=== PATIENT | female | born 1980 | race Asian ===

== ENCOUNTER 2023-05-19 11:50 | Inpatient (IN) ==
[2023-05-19 13:19] LABS: Pregnancy Test, Serum Negative (Negative)
[2023-05-19 13:20] LABS: Anion Gap 6 (3-11); Blood Urea Nitrogen 9 mg/dl (6-23); Calcium 8.8 mg/dl (8.6-10.3); Carbon Dioxide 25 mmol/L (21-32); Chloride 107 mmol/L (98-107); Est GFR (African American) 112.4 ml/min; Est GFR (Non-African American) 96.9 ml/min; Glucose 112 mg/dl (70-99(Fasting)); Potassium 3.5 mmol/L (3.5-5.1); Sodium 138 mmol/L (136-145)
--- NOTE | 2023-05-19 13:21 | Emergency Department Note ---
Impression & Plan Severe anemia, Bloody stools ED Provider Note Provider: Epifanio Carty MD DATE OF SERVICE: 05/19/2023 CHIEF COMPLAINT: Low blood counts, weakness HISTORY OF PRESENT ILLNESS: Patient is a 43-year-old female originally from [facility] here since October presenting referred from [facility] due to abnormal blood work and weakness. Patient states she had flu just over a month ago. States over the last several weeks she has been noting bright red blood in the toilet. Has had a little bit of bleeding on and off over the last for maybe 20 years. Has been evaluated in [facility] for this evidently with some imaging and they thought it might be hemorrhoid related but held off on surgery. Again at home for the past month almost continuous with red blood in the toilet. Denies significant abdominal pain. Denies any chest pain. Reports some dyspnea on exertion and feeling generally weak and fatigued. Denies significant heartburn. No history of fever or chills recently. No history of colon cancer or IBD reported. Denies significant diarrheal symptoms. Denies nosebleeds, bruising, or significant abnormal uterine bleeding. Denies use of blood thinners. Has not had a transfusion in the past. Does report she has a history of minor thalassemia. 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 NECK: Trachea midline. ENT: Mucous membranes pink and moist. LUNGS: Airway patent. No retractions or tachypnea HEART: Regular rate and rhythm. No chest wall tenderness ABDOMEN: Soft and non-tender, without guarding or rebound. SKIN: Acyanotic, warm, dry, without rashes EXTREMITIES: Without swelling, tenderness or deformity NEUROLOGICAL: No focal deficits. No aphasia. No facial droop or slurred speech. Normal strength and tone in the extremities. Sensation to gross touch normal. Ambulatory. EK bpm sinus tachycardia. No PVC or PAC. No acute ST segment elevation with a QTc of 448. Nonspecific inferior T wave changes. CONTINUOUS CARDIAC MONITORING: was ordered and showed a heart rate of 90s-100s bpm in an normal sinus rhythm to sinus tachycardia Patient's laboratory studies and imaging reviewed. Differential includes Infection, dehydration, metabolic abnormality, hypo/hyperglycemia, electrolyte disturbance, anemia, hypoxia, cardiac sources, intracerebral event, toxicologic, neurologic, as well as other pathologies. IMPRESSION/MEDICAL DECISION MAKING: Reviewed note and blood work from [facility]. Patient with a fairly normal metabolic panel chemistries however notable for significant anemia at 4.1 with a normal white blood cell count as well as a low platelet count. Has for the last several days been taking some vitamin and iron supplementation. Benign abdomen on exam. Reports of bright red blood but doubt this represents Crohn's or IBD given the lack of abdominal pain. No fevers reported. Dyspnea on exertion fatigue likely related to her severe anemia. Type and screen completed. Blood consent completed. Iron and ferritin panel ordered. Will give some Protonix but less likely be upper GI bleed given the normal BUN. Hemoglobin firmed at 3.8. Will order blood for transfusion as the patient agreeable. Will complete a CT abdomen to look for any intra-abdominal bleeding source or mass. Hospitalist team contacted. Platelet count normal here with normal white blood cell count. Normal INR. CT abd pelvis per radiology without acute finding. Will bring in for further workup and transfusion. Appears iron deficient. Denies diet restriction. Likely more chronic blood loss. DIAGNOSIS: Severe anemia, dyspnea on exertion DISPOSITION: Hospitalist will evaluate Patient was agreeable with this plan. Critical Care I have personally spent 33 minutes of critical care time in the direct management of this patient. This includes bedside care, interpretation of diagnostic studies, and testing, discussion with consultants, patient, and other required patient management activities. These 33 minutes is in excess of all separately billable procedures. Past Med/Surg History Social History Smoking Status: Never smoker Preferred Language: Turkmen Feels Safe at Home: Yes Allergies Allergies Allergy/AdvReac Type Severity Reaction Status Date / Time No Known Allergies Allergy Verified 03/30/23 09:37 Home Meds Previous Rx's Medication Instructions Recorded cetirizine 10 mg tablet 10 mg PO DAILY PRN allergy 03/30/23 symptoms #30 tabs copper 380 square mm intrauterine 1 device intrauterine ONCE #1 ea 03/30/23 device (ParaGard T 380A) Results & Data (ED) Vital Signs Vital Signs - 24 hr 05/19/23 12:10 05/19/23 13:03 05/19/23 13:04 Temperature 36.6 C Temperature Source Temporal Artery Scan Pulse Rate 108 H 97 H 96 H Respiratory Rate 16 23 Respiratory Effort / Characteristics Non-Labored Spontaneous Respiratory Depth Normal Respiratory Pattern Regular Blood Pressure 125/77 Blood Pressure Mean 93 Pulse Oximetry 100 Oxygen Delivery Method Room Air Sepsis Recent Fever Within 48 Hours No Sepsis New/Unexplained Change in Mental Status No Sepsis Action Taken by Nursing No Action Required 05/19/23 13:10 05/19/23 13:15 05/19/23 13:19 Temperature Temperature Source Pulse Rate 93 H 95 H Respiratory Rate 21 23 Respiratory Effort / Characteristics Respiratory Depth Respiratory Pattern Blood Pressure Blood Pressure Mean Pulse Oximetry Oxygen Delivery Method Room Air Sepsis Recent Fever Within 48 Hours Sepsis New/Unexplained Change in Mental Status Sepsis Action Taken by Nursing 05/19/23 13:19 05/19/23 13:20 05/19/23 13:30 Temperature Temperature Source Pulse Rate 94 H 96 H Respiratory Rate 19 22 Respiratory Effort / Characteristics Respiratory Depth Respiratory Pattern Blood Pressure 122/75 Blood Pressure Mean 91 Pulse Oximetry Oxygen Delivery Method Sepsis Recent Fever Within 48 Hours Sepsis New/Unexplained Change in Mental Status Sepsis Action Taken by Nursing 05/19/23 13:30 05/19/23 13:40 05/19/23 13:50 Temperature Temperature Source Pulse Rate 102 H 93 H Respiratory Rate 21 19 Respiratory Effort / Characteristics Respiratory Depth Respiratory Pattern Blood Pressure 122/76 Blood Pressure Mean 88 Pulse Oximetry Oxygen Delivery Method Sepsis Recent Fever Within 48 Hours Sepsis New/Unexplained Change in Mental Status Sepsis Action Taken by Nursing 05/19/23 14:08 05/19/23 14:10 05/19/23 14:20 Temperature Temperature Source Pulse Rate 95 H 91 H 104 H Respiratory Rate 16 19 20 Respiratory Effort / Characteristics Respiratory Depth Respiratory Pattern Blood Pressure Blood Pressure Mean Pulse Oximetry Oxygen Delivery Method Sepsis Recent Fever Within 48 Hours Sepsis New/Unexplained Change in Mental Status Sepsis Action Taken by Nursing 05/19/23 14:30 05/19/23 14:31 05/19/23 14:31 Temperature Temperature Source Pulse Rate 87 91 H Respiratory Rate 23 19 Respiratory Effort / Characteristics Respiratory Depth Respiratory Pattern Blood Pressure 116/68 Blood Pressure Mean 80 Pulse Oximetry Oxygen Delivery Method Sepsis Recent Fever Within 48 Hours Sepsis New/Unexplained Change in Mental Status Sepsis Action Taken by Nursing Laboratory Data 05/19/23 12:24 05/19/23 12:26 Lab Results 05/19/23 05/19/23 05/19/23 Range/Units 12:24 12:26 12:30 WBC 5.25 (4.8-10.8) K/ul RBC 2.75 L (4.20-5.40) M/uL Hgb 3.8 L* (12.0-16.0) g/dl Hct 14.8 L* (37.0-47.0) % MCV 53.8 L (80.0-100.0) fL MCH 13.8 L (25.0-34.0) pg MCHC 25.7 L (32.0-36.0) g/dL RDW Std Deviation 43.1 (36.4-46.3) fL RDW Coeff of Floresita 24.1 H (11.5-14.5) % Plt Count 349 (130-400) K/uL Absolute Nucleated RBC 0.02 (0.00-0.12) K/uL Nucleated RBC % (auto) 0.4 % PT 10.9 (9.0-12.0) Seconds INR 1.0 (0.9-1.1) APTT 21 (21-31) Seconds PTT Ratio 0.7 Sodium 138 (136-145) mmol/L Potassium 3.5 (3.5-5.1) mmol/L Chloride 107 (98-107) mmol/L Carbon Dioxide 25 (21-32) mmol/L Anion Gap 6 (3-11) BUN 9 (6-23) mg/dl Creatinine 0.75 (0.6-1.2) mg/dl Est Cr Clr Drug Dosing Not Reportable Est GFR ( Amer) 112.4 ml/min Est GFR (Non-Af Amer) 96.9 ml/min BUN/Creatinine Ratio 12.0 (10-20) Glucose 112 H (70-99(Fasting)) mg/dl Calcium 8.8 (8.6-10.3) mg/dl Iron 10 L (35-150) mcg/dl TIBC 512 H (250-450) mcg/dl Unsaturated IBC 502 H (155-355) mcg/dl Transferrin % Sat 2 L (15-50) % Ferritin 2.1 L (8-388) ng/ml Total Bilirubin 0.4 (0.2-1.0) mg/dl AST 14 (13-39) U/L ALT 9 (7-52) U/L Alkaline Phosphatase 51 (34-104) U/L Troponin I High Sens < 2.3 (0-14) pg/ml Total Protein 7.0 (6.0-8.3) gm/dl Albumin 4.1 (3.4-5.0) gm/dl Globulin 2.9 (2.5-4.0) gm/dl Albumin/Globulin Ratio 1.4 (0.9-2) HCG, Qual Negative (Negative) Blood Type O Positive Blood Type Recheck Antibody Screen NEGATIVE Crossmatch See Detail 05/19/23 Range/Units 13:16 WBC (4.8-10.8) K/ul RBC (4.20-5.40) M/uL Hgb (12.0-16.0) g/dl Hct (37.0-47.0) % MCV (80.0-100.0) fL MCH (25.0-34.0) pg MCHC (32.0-36.0) g/dL RDW Std Deviation (36.4-46.3) fL RDW Coeff of Floresita (11.5-14.5) % Plt Count (130-400) K/uL Absolute Nucleated RBC (0.00-0.12) K/uL Nucleated RBC % (auto) % PT (9.0-12.0) Seconds INR (0.9-1.1) APTT (21-31) Seconds PTT Ratio Sodium (136-145) mmol/L Potassium (3.5-5.1) mmol/L Chloride (98-107) mmol/L Carbon Dioxide (21-32) mmol/L Anion Gap (3-11) BUN (6-23) mg/dl Creatinine (0.6-1.2) mg/dl Est Cr Clr Drug Dosing Est GFR ( Amer) ml/min Est GFR (Non-Af Amer) ml/min BUN/Creatinine Ratio (10-20) Glucose (70-99(Fasting)) mg/dl Calcium (8.6-10.3) mg/dl Iron (35-150) mcg/dl TIBC (250-450) mcg/dl Unsaturated IBC (155-355) mcg/dl Transferrin % Sat (15-50) % Ferritin (8-388) ng/ml Total Bilirubin (0.2-1.0) mg/dl AST (13-39) U/L ALT (7-52) U/L Alkaline Phosphatase (34-104) U/L Troponin I High Sens (0-14) pg/ml Total Protein (6.0-8.3) gm/dl Albumin (3.4-5.0) gm/dl Globulin (2.5-4.0) gm/dl Albumin/Globulin Ratio (0.9-2) HCG, Qual (Negative) Blood Type Blood Type Recheck O Positive Antibody Screen Crossmatch Administered Medications Discontinued Medications Pantoprazole Sodium 40 mg/ (Syringe) 10 mls @ 5 mls/min IV NOW ONE Stop: 05/19/23 13:28 Last Admin: 05/19/23 14:14 Dose: 5 mls/min Documented By: JOLYNN Ioversol (Optiray 320 125ml) 112 ml IV ONCE ONE Stop: 05/19/23 14:03 Last Admin: 05/19/23 14:03 Dose: 112 ml Documented By: HILDA Imaging Data Radiologist's Impression: Abdomen/Pelvis CTA 05/19/23 13:26 CT ANGIOGRAPHY OF THE ABDOMEN AND PELVIS CLINICAL HISTORY: bloody stool, severe anemia COMPARISON STUDY: No previous studies for comparison. TECHNIQUE: Helical axial images of the abdomen and pelvis were obtained during arterial phase following intravenous injection of 112 cc of Optiray 320 IV. Sagittal and coronal reconstructions were viewed as well as maximal intensity projections on an independent 3-D workstation. Automated exposure control was utilized for the study. A dose lowering technique was utilized adhering to the principles of ALARA. FINDINGS: Groundglass opacities within the lung bases favor atelectasis. No pneumatosis, free air or portal venous gas is present. Arterial phase images of the liver, spleen, adrenal glands, kidneys and pancreas are unremarkable. There is no biliary or pancreatic ductal dilatation. There is no hydronephrosis. The caliber and wall thickness of small and large bowel are normal. Sensitivity for detection of mucosal lesions is diminished given CT technique but none are identified. The appendix is normal. The caliber of the abdominal aorta is normal. 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 The superior mesenteric artery is patent. The inferior mesenteric artery is patent. Renal arteries are patent. The bilateral common iliac, internal iliac, external iliac and common femoral arteries are patent. No stenosis, dissection or aneurysm is identified within the abdomen or pelvis. Intrauterine device is in place. IMPRESSION: 1. No acute process within the abdomen or pelvis on CTA. 2. Normal caliber abdominal aorta. 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 Patent SMA and SÁNCHEZ. 3. Normal appendix. No bowel obstruction. No bowel wall thickening. ACT 112: Negative or not required by law. Electronically signed by: Mike Ricks M.D. 05/19/2023 2:29 PM Discharge Plan Visit Data Chief Complaint: Abnormal Labs/Diagnostic Testing Stated Complaint: DOC REF,ABNORMAL LABS ED Provider: Epifanio Carty Discharge Problem: Severe anemia, Bloody stools Patient Disposition: Being Evaluated by Hospitalist Prescriptions Prescriptions: No Action ParaGard T 380A 380 square mm intrauterine device 1 device intrauterine ONCE Qty: 1 0RF cetirizine 10 mg tablet 10 mg PO DAILY PRN (Reason: allergy symptoms) Qty: 30 1RF Referrals Referrals: Unknown,Unknown [] -
[2023-05-19 13:23] LABS: Troponin I High Sensitivity < 2.3 pg/ml (0-14)
[2023-05-19 13:24] LABS: Alanine Aminotransferase 9 U/L (7-52); Albumin Level 4.1 gm/dl (3.4-5.0); Alkaline Phosphatase 51 U/L (34-104); Aspartate Aminotransferase 14 U/L (13-39); Bilirubin,Total 0.4 mg/dl (0.2-1.0); Iron 10 mcg/dl (35-150)
[2023-05-19 13:25] LABS: Albumin Globulin Ratio 1.4 (0.9-2); Globulin 2.9 gm/dl (2.5-4.0)
[2023-05-19 13:31] LABS: Partial Thromboplastin Ratio 0.7; Partial Thromboplastin Time 21 Seconds (21-31); Prothrombin Time 10.9 Seconds (9.0-12.0)
[2023-05-19] MEDS ORDERED: SODIUM CHLORIDE 0.9% 250 ML IV PRN (13:32)
[2023-05-19 13:36] LABS: Hematocrit (blood only) 14.8 % (37.0-47.0); Hemoglobin 3.8 g/dl (12.0-16.0); Mean Corpuscular Hemoglobin 13.8 pg (25.0-34.0); Mean Corpuscular Hgb Conc 25.7 g/dL (32.0-36.0); Mean Corpuscular Volume 53.8 fL (80.0-100.0); Nucleated RBC # (auto) 0.02 K/uL (0.00-0.12); Nucleated RBC % (auto) 0.4 %; Platelet Count 349 K/uL (130-400); RDW Coefficient of Variation 24.1 % (11.5-14.5); RDW Standard Deviation 43.1 fL (36.4-46.3); Red Blood Count 2.75 M/uL (4.20-5.40); White Blood Count 5.25 K/ul (4.8-10.8)
[2023-05-19 13:37] LABS: Ferritin 2.1 ng/ml (8-388)
[2023-05-19 13:53] LABS: Total Iron Binding Cap Calc 512 mcg/dl (250-450); Transferrin (FE) Percent Satur 2 % (15-50); Unsaturated Iron Binding Cap 502 mcg/dl (155-355)
[2023-05-19] MEDS: OPTIRAY 320 125ml IV ONE (14:03)
[2023-05-19] MEDS: PANTOprazole 40 MG in SYRINGE 0 ML IV ONE (14:14)
--- NOTE | 2023-05-19 14:30 | CT Scan Report ---
CT ANGIOGRAPHY OF THE ABDOMEN AND PELVIS CLINICAL HISTORY: bloody stool, severe anemia COMPARISON STUDY: No previous studies for comparison. TECHNIQUE: Helical axial images of the abdomen and pelvis were obtained during arterial phase followi ng intravenous injection of 112 cc of Optiray 320 IV. Sagittal and coronal reconstructions were viewe d as well as maximal intensity projections on an independent 3-D workstation. Automated exposure cont rol was utilized for the study. A dose lowering technique was utilized adhering to the principles of ALARA. FINDINGS: Groundglass opacities within the lung bases favor atelectasis. No pneumatosis, free air or portal venous gas is present. Arterial phase images of the liver, spleen, adrenal glands, kidneys and pancreas are unremarkable. There is no biliary or pancreatic ductal dilatation. There is no hydronep hrosis. The caliber and wall thickness of small and large bowel are normal. Sensitivity for detection of mucosal lesions is diminished given CT technique but none are identified. The appendix is normal. The caliber of the abdominal aorta is normal. There is moderate stenosis of the proximal celiac axis . 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 The superior mesenteric artery is patent. The inferior mesenteric artery is patent. Renal arteries are patent. The bilateral common iliac, internal iliac, external iliac and common femoral arteries are patent. No stenosis, dissectio n or aneurysm is identified within the abdomen or pelvis. Intrauterine device is in place. IMPRESSION: 1. No acute process within the abdomen or pelvis on CTA. 2. Normal caliber abdominal aorta. 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 Patent SMA and SÁNCHEZ. 3. Normal appendix. No bowel obstruction. No bowel wall thickening. ACT 112: Negative or not required by law. Electronically signed by: Mike Ricks M.D. 05/19/2023 2:29 PM
--- NOTE | 2023-05-19 14:47 | History & Physical Report ---
Date of Service May 19, 2023 Assessment & Plan (1) Severe anemia: Plan: Severe iron deficiency anemia, hematochezia No history of colorectal cancer. History of hemorrhoids. Pt reports she had a local exam in [place] however did not have colonoscopy With persistent and continuous hematochezia. No epigastric pain, NSAID use, aspirin use, and BUN is normal CTA without evidence of acute abnormality/bleeding. Patient is at risk for MA LS; has had no symptoms of this Patient with presenting hemoglobin of 3.8; however she is mentating normally with some exertional fatigue but with no hypotension and minimal tachycardia suggestive of chronic decline Transferrin saturation 2%, ferritin critically low at 2.1 consistent with iron deficiency anemia. Patient is microcytic from both iron deficiency and thalassemia 3 units ordered for transfusion, 2 units on hold. Given hemoglobin of 3.8 will transfuse 2 units then check H&H, continue 1 unit at a time thereafter until hemoglobin greater than 7.0. No history of CHF or volume overload. If 3+ units are required will add small dose of Lasix, 1 dose of calcium gluconate GI consulted Once hemoglobin stabilizes greater than 7, recommend completing an inpatient course of Venofer 200-300 mg daily infusions up to a total course of 1 g during this hospitalization High sensitive troponin is negative, no signs of endorgan ischemia Patient has only had bright red bleeding, has a normal BUN, and no melena or abdominal tenderness. She shows no signs of upper GI bleed, history and exam is consistent with lower. Has received PPI bolus we will hold on additional at this time Strict n.p.o., IV FM deferred while receiving multiple units of transfusionAfter hemoglobin stable if remains n.p.o. can add LR 100 cc/h at that time - B12/folate pending (2) Bloody stools: (3) Thalassemia: Plan: Resume folic acid once able to tolerate p.o. (4) Bleeding hemorrhoid: (5) Encounter for insertion of copper IUD: Plan: Patient with copper IUD. She has monthly menses lasting approximately 6 days. She reports her menses are not particularly heavy, do not have excessive bleeding, or issues with clots/prolonged bleeding. Suspect her anemia is predominantly due to lower GI bleeding, no indication to switch from ParaGuard at this time Plan DVT prophylaxis: SCDs Disposition: Telemetry for GI bleed with critically low hemoglobin CODE STATUS: Full code Diet: N.p.o. History of Present Illness Primary Care Provider: 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 Patient did have an evaluation in [place] for this and was diagnosed with hemorrhoids but did not require surgery at time of evaluation. Patient has continued with bright red blood in the toilet over the last month. She has recently had progressive dyspnea on exertion, weakness, global fatigue without focal weakness or sensory change. No personal or family history of colon cancer/IBD. She has a history of thalassemia and macrocytosis. Case was discussed in the ER, patient's transferrin saturation is 2%, ferritin 2.1% consistent with severe iron deficiency anemia. She has a microcytosis multifactorial from iron deficiency and thalassemia with a presenting hemoglobin of 3.8. Initially was reflexed to a manual platelet count from outpatient [facility] blood work, platelets are normal on admitting CBC. Patient seen at the bedside. She reports that she has had a long history of intermittent bright red bleeding with bowel movements in the toilet, however this has been more persistent and relatively constant over the last month. Approximately 2 to 3 weeks ago she began to get short of breath with exertion, lightheaded, and progressively weaker/with lower exercise tolerance. She has not had chest pain or syncope at any point. She eventually felt so tired that she saw [facility], was found to be anemic and was subsequently referred to the ER for further care. She has a exchange student fluent in Kyrgyz. She reports that she had a local exam which diagnosed hemorrhoids when she was in [facility]; however has not been sedated for any procedures and does not think she had a actual colonoscopy at any point. No history of colorectal cancer. She does have a copper IUD, has regular menses every 28 days which last about 6 days but are without heavy bleeding or clots. Denies other bleeding. No history of blood clots. She is not on antiplatelet agents or blood thinners. She did recently have the flu last month from which she has recovered, did use some intermittent NyQuil at that time. Otherwise has not used any ibuprofen or aspirin containing products. She has no epigastric pain, nausea, vomiting, or melena. Medical History: Reviewed Medications: Reviewed Surgical History: Reviewed Family history: Reviewed Allergies: Reviewed Social History: Reviewed Code Status:Full Allergies Allergy/AdvReac Type Severity Reaction Status Date / Time No Known Allergies Allergy Verified 05/19/23 15:02 Home Medications Medication Instructions Recorded Confirmed Type albuterol sulfate 90 mcg/actuation 1 puff inhalation DIRECTED PRN 05/19/23 05/19/23 History aerosol inhaler Cough copper 380 square mm intrauterine 1 device intrauterine CONTINOUS 05/19/23 05/19/23 History device (ParaGard T 380A) Past Med/Surg History Medical History (Updated 05/19/23 @ 15:21 by Dean Leyva MD) Encounter for insertion of copper IUD Bleeding hemorrhoid Thalassemia Bloody stools Social History Smoking Status: Never smoker Preferred Language: Kyrgyz Feels Safe at Home: Yes Physical Exam Physical Exam: General: A&Ox3. NAD. Cooperative. +pallor HEENT: Atraumatic, normocephalic. Pulm: CTAB A&P. -wheezes, -rales, -rhonchi. Symmetrical chest rise. No increased work of breathing. No respiratory distress. Cardiac: RRR, -mrg. Radial pulses intact and symmetrical. Abdominal: Nontender, nondistended, soft. BS present. Ext: warm, dry. Distal strength/sensation grossly intact. Results & Data Results & Data Vital Signs (Past 12 Hours) Vital Signs Temp Pulse Resp BP Pulse Ox O2 Del Method 05/19/23 14:31 116/68 05/19/23 14:31 91 H 19 05/19/23 14:30 87 23 05/19/23 14:20 104 H 20 05/19/23 14:10 91 H 19 05/19/23 14:08 95 H 16 05/19/23 13:50 93 H 19 05/19/23 13:40 102 H 21 05/19/23 13:30 122/76 05/19/23 13:30 96 H 22 05/19/23 13:20 94 H 19 05/19/23 13:19 122/75 05/19/23 13:19 95 H 23 05/19/23 13:15 Room Air 05/19/23 13:10 93 H 21 05/19/23 13:04 96 H 05/19/23 13:03 97 H 23 05/19/23 12:10 36.6 C 108 H 16 125/77 100 Room Air PG Care Time/CCT Total # of Minutes Spent Total Time Spent with Patient: Total time spent is greater than 50% in coordination of care (as documented) at patient's floor/unit and/or counseling patient: Coding Level of Care Code 58043 INT INP/OBS CARE 3/75MIN Diagnoses Severe anemia D64.9 Bloody stools K92.1 Thalassemia D56.9 Bleeding hemorrhoid K64.9 Encounter for insertion of copper IUD Z30.430
[2023-05-19] MEDS ORDERED: ALBUTEROL HFA 8 GM INHALER INH PRN (16:50)
[2023-05-19 21:09] LABS: Hematocrit (blood only) 23.2 % (37.0-47.0); Hemoglobin 7.1 g/dl (12.0-16.0)
[2023-05-20 01:27] LABS: Hemoglobin 6.9 g/dl (12.0-16.0)
[2023-05-20] MEDS ORDERED: STAT IV/IM STA (01:57)
[2023-05-20] MEDS: CALCIUM GLUCONATE 10% 1,000 MG in SODIUM CHLOR 0.9% MINI-B 50 ML IV ONE (04:16)
[2023-05-20] MEDS: FUROSEMIDE INJ 20 MG/2 ML VIAL IV ONE (04:31)
[2023-05-20] MEDS: LACTATED RINGER'S 1,000 ML IV SCH ×2 (06:17→08:46)
--- NOTE | 2023-05-20 06:19 | Electrocardiogram Report ---
Test Reason : Blood Pressure : / mmHG Vent. Rate : 106 BPM Atrial Rate : 106 BPM P-R Int : 142 ms QRS Dur : 084 ms QT Int : 338 ms P-R-T Axes : 074 075 -13 degrees QTc Int : 448 ms Sinus tachycardia Possible Left atrial enlargement Nonspecific T wave abnormality Abnormal ECG No previous ECGs available Confirmed by Rambo Joseph ([id number]) on 05/20/2023 6:18:49 AM Referred By: [facility] Confirmed By:Rambo Joseph
[2023-05-20 06:55] LABS: BUN Creatinine Ratio 11.4 (10-20); Calcium 9.1 mg/dl (8.6-10.3); Creatinine Clr Calc Pharmacy 75.2 ml/min; Est GFR (African American) 105.5 ml/min; Hematocrit (blood only) 28.3 % (37.0-47.0); Hemoglobin 9.1 g/dl (12.0-16.0); Mean Corpuscular Hemoglobin 21.2 pg (25.0-34.0); Mean Corpuscular Hgb Conc 32.2 g/dL (32.0-36.0); Mean Corpuscular Volume 65.8 fL (80.0-100.0); Nucleated RBC # (auto) 0.04 K/uL (0.00-0.12); Nucleated RBC % (auto) 0.6 %; Platelet Count 294 K/uL (130-400); Potassium 3.6 mmol/L (3.5-5.1); White Blood Count 7.19 K/ul (4.8-10.8)
[2023-05-20 07:22] LABS: Folate (Folic Acid),Ser orPlas > 22.30 ng/ml (>5.38)
[2023-05-20 07:23] LABS: Vitamin B12 285 pg/ml (180-914)
[2023-05-20 07:31] LABS: Anisocytosis Present; Basophils # (auto) 0.02 K/uL (0.00-0.20); Basophils % (auto) 0.3 %; Eosinophils # (auto) 0.04 K/uL (0.00-0.50); Eosinophils % (auto) 0.6 %; Hypochromasia Present; Immature Granulocytes # (auto) 0.03 K/uL (0.01-0.20); Immature Granulocytes % (auto) 0.4 %; Lymphocytes % (auto) 26.4 %; Microcytosis Present; Monocytes # (auto) 0.49 K/uL (0.11-0.59); Monocytes % (auto) 6.8 %; Neutrophils # (auto) 4.71 K/uL (1.40-6.50); Neutrophils % (auto) 65.5 %; Polychromasia 3+; Tear Drop Cells 1+
[2023-05-20] MEDS: IRON SUCROSE 200 MG in 0.9 % SODIUM CHLORIDE 100 ML IV SCH (08:46)
--- NOTE | 2023-05-20 10:50 | Gastrointestinal Consultation ---
Date of Consultation May 20, 2023 Assessment & Plan (1) Bloody stools: (2) Severe anemia: Plan Patient is a 43 y.o. female with a history of Thalassemia admitted with profound symptomatic anemia and rectal bleeding. -NPO. -EGD for further evaluation by Dr. Upton today. -Pending results of testing, will determine need/timing of colonoscopy. -Continue supportive care per primary team. Thank you for allowing us to participate in the care of this patient. If you have any questions or concerns, please do not hesitate to contact us. Supervising Physician Co-Signing Physician Notes Agree with OLIVE Gil as above Abd: Soft, NT, ND, +BS Continue current therapy and supportive care Proceed with EGD now History of Present Illness Reason for Consultation: Symptomatic anemia Requesting Physician: Dr. Garcia Attending Physician: Bayron Frost MD History of Present Illness Patient is a 43 y.o. female with a history of thalassemia and hemorrhoids admitted with symptomatic anemia. She states she has an approximate 20 year history of intermittent rectal bleeding but states she has been having persistent bright red rectal bleeding over the past month. The bleeding is noted with bowel movements and dripping in the bowl during urination as well. No abdominal pain, diarrhea, constipation, bloating, nausea, vomiting or unintentional weight loss. She has never undergone any prior endoscopic work up for bleeding but did reportedly have treatment for hemorrhoids in [facility]. On arrival, she was profoundly anemic with a H&H of 3.8/14.8. After receiving 3 units of PRBCs, she is up to 9.1/28.3 this morning. She remains NPO. No family history of IBD or GI malignancy. Allergies Allergy/AdvReac Type Severity Reaction Status Date / Time No Known Allergies Allergy Verified 05/19/23 15:02 Home Medications Medication Instructions Recorded Confirmed Type albuterol sulfate 90 mcg/actuation 1 puff inhalation DIRECTED PRN 05/19/23 05/19/23 History aerosol inhaler Cough copper 380 square mm intrauterine 1 device intrauterine CONTINOUS 05/19/23 05/19/23 History device (ParaGard T 380A) Patient History Medical History Encounter for insertion of copper IUD Bleeding hemorrhoid Thalassemia Bloody stools Social History Smoking Status: Never smoker Hx Alcohol Use: Yes Hx Substance Use: No Preferred Language: Cape Verdean Communication Ability: Effective Collet Maker Required: No Beliefs That Will Affect Care: None Current Living Situation: Boarding Home Feels Safe at Home: Yes Assistive Devices: Glasses Review of Systems Review of Systems: All systems reviewed & are unremarkable except as noted in HPI & below Physical Exam Constitutional: WD/WN, vitals as above Eyes: EOM intact bilaterally Neck: normal appearance Respiratory: normal respiratory effort, lungs clear to auscultation Cardiovascular: Rate/Rhythm: regular rate and regular rhythm Heart Sounds: no gallop and no murmur Gastrointestinal (Abdomen): normal bowel sounds, soft, nontender, no hepatosplenomegaly Inspection/Auscultation: abdomen not distended Musculoskeletal: Extremities: no cyanosis no lower extremity edema Skin: no rashes, warm and dry Neurologic: moves all extremities Psychiatric: A+Ox3, euthymic affect Results & Data Vital Signs (Past 12 Hours) Vital Signs Temp Pulse Pulse Resp BP BP Pulse Ox 05/20/23 09:07 71 05/20/23 07:24 36.8 C 73 16 116/69 98 05/20/23 04:20 36.8 C 72 15 114/72 99 05/20/23 03:45 36.9 C 73 14 100/73 97 05/20/23 02:45 36.8 C 76 16 115/71 98 05/20/23 02:15 37.0 C 75 17 113/71 98 05/20/23 02:00 36.8 C 72 15 118/72 98 05/20/23 01:45 37.0 C 74 17 116/68 98 05/19/23 23:05 36.9 C 83 14 120/67 99 05/19/23 22:50 79 O2 Del Method 05/20/23 09:07 05/20/23 07:24 Room Air 05/20/23 04:20 05/20/23 03:45 05/20/23 02:45 05/20/23 02:15 05/20/23 02:00 05/20/23 01:45 05/19/23 23:05 Room Air 05/19/23 22:50 Diagnostic Findings Abnormal lab results 05/19/23 05/19/23 05/19/23 Range/Units 12:24 12:26 20:38 RBC 2.75 L (4.20-5.40) M/uL Hgb 3.8 L* 7.1 L D (12.0-16.0) g/dl Hct 14.8 L* 23.2 L (37.0-47.0) % MCV 53.8 L (80.0-100.0) fL MCH 13.8 L (25.0-34.0) pg MCHC 25.7 L (32.0-36.0) g/dL RDW Coeff of [place] 24.1 H (11.5-14.5) % Glucose 112 H (70-99(Fasting)) mg/dl Iron 10 L (35-150) mcg/dl TIBC 512 H (250-450) mcg/dl Unsaturated IBC 502 H (155-355) mcg/dl Transferrin % Sat 2 L (15-50) % Ferritin 2.1 L (8-388) ng/ml Crossmatch See Detail 05/20/23 05/20/23 Range/Units 00:35 06:02 RBC (4.20-5.40) M/uL Hgb 6.9 L* 9.1 L (12.0-16.0) g/dl Hct 22.0 L 28.3 L (37.0-47.0) % MCV 65.8 L D (80.0-100.0) fL MCH 21.2 L (25.0-34.0) pg MCHC (32.0-36.0) g/dL RDW Coeff of [place] (11.5-14.5) % Glucose (70-99(Fasting)) mg/dl Iron (35-150) mcg/dl TIBC (250-450) mcg/dl Unsaturated IBC (155-355) mcg/dl Transferrin % Sat (15-50) % Ferritin (8-388) ng/ml Crossmatch PG Care Time/CCT Total # of Minutes Spent Total Time Spent with Patient: Total time spent is greater than 50% in coordination of care (as documented) at patient's floor/unit and/or counseling patient: Coding Level of Care Code 32467 INT INP/OBS CARE 3/75MIN Diagnoses Bloody stools K92.1 Severe anemia D64.9
--- NOTE | 2023-05-20 11:41 | Anesthesiology Consultation ---
Date of Service May 20, 2023 Assessment & Plan ASA ASA2 Proposed Anesthesia Anesthesia Type: MAC Risk / Benefits Reviewed With: PT / POA / Parent / Guardian, Accepts Plan and Informed Consent Obtained History Surgery Operation Date: 05/20/23 17:00 Proposed Procedures p Esophagogastroduodenoscopy Dr Upton - Simon David Case, DO Height/Weight Height: 5 ft 3 in Weight: 60.3 kg Allergies Allergy/AdvReac Type Severity Reaction Status Date / Time No Known Allergies Allergy Verified 05/19/23 15:02 Medications Home Medications Medication Instructions Recorded Confirmed Last Taken albuterol sulfate 90 mcg/actuation 1 puff inhalation DIRECTED PRN 05/19/23 05/19/23 Unknown aerosol inhaler Cough copper 380 square mm intrauterine 1 device intrauterine CONTINOUS 05/19/23 05/19/23 Unknown device (ParaGard T 380A) Active Medications Generic Name Dose Route Start Last Admin Trade Name Freq PRN Reason Stop Dose Admin Lactated Ringer's 1,000 mls @ 100 mls/hr 05/20/23 08:05 05/20/23 08:46 Lr IV 06/19/23 08:02 100 mls/hr .Q10H SHARMIN Administration Iron Sucrose 200 mg/ Sodium 110 mls @ 220 mls/hr 05/20/23 09:00 05/20/23 09:19 Chloride IV 05/24/23 08:59 Infused DAILY SHARMIN Infusion NPO Date Last Intake of Fluids: 05/19/23 Time Last Intake of Fluids: 10:30 Date Last Intake of Solids: 05/19/23 Time Last Intake of Solids: 10:30 Past Medical History Medical History Encounter for insertion of copper IUD Bleeding hemorrhoid Thalassemia Bloody stools Exercise / Class Metabolic Activity II 4-5 Yardwork/Stairs/Walk up hill Past Anesthesia History No Hx of Anesthesia Complications and No Family Hx of Anesthesia Complications History of PONV No Hx of PONV and No Hx of Motion Sickness Social History Smoking Status: Never smoker Hx Alcohol Use: Yes alcohol intake frequency: holidays/special occasions only Hx Substance Use: No Physical Exam Vital Signs Last Vital Signs Temp 37.2 C 05/20/23 11:07 Pulse 72 05/20/23 11:07 Resp 16 05/20/23 11:07 BP 114/75 05/20/23 11:07 Pulse Ox 99 05/20/23 11:07 O2 Del Method Room Air 05/20/23 11:07 Constitutional no acute distress ENMT Mouth: no dentition abnormality Thyromental Distance: > or= 3.5 Finger Breadths Mallampati Class: III Neck normal visual inspection Respiratory normal respiratory effort; no respiratory distress Auscultation: lungs clear to auscultation bilaterally Cardiovascular Rate/Rhythm: regular rate and regular rhythm Heart Sounds: no murmur Musculoskeletal Spine: normal cervical ROM Psychiatric Orientation: alert and oriented x 3 Testing Laboratory Results 05/20/23 06:02 05/20/23 06:02 PT 10.9 Seconds (9.0-12.0) 05/19/23 12:24 INR 1.0 (0.9-1.1) 05/19/23 12: APTT 21 Seconds (21-31) 05/19/23 12:24 Blood Type O Positive 05/19/23 12: Antibody Screen NEGATIVE 05/19/23 12:24 Day of Procedure Evaluation. Date of Surgery May 20, 2023 Review / Plan Pt was admitted with severe hamatochezia and anemia hgb<4 and was transfused with PRBCs. She is for EGD today. Height/Weight Height: 5 ft 3 in Weight: 60.3 kg Vital Signs Last Vital Signs Temp 37.2 C 05/20/23 11:07 Pulse 72 05/20/23 11:07 Resp 16 05/20/23 11:07 BP 114/75 05/20/23 11:07 Pulse Ox 99 05/20/23 11:07 O2 Del Method Room Air 05/20/23 11:07 Allergies Allergy/AdvReac Type Severity Reaction Status Date / Time No Known Allergies Allergy Verified 05/19/23 15:02 Medications Home Medications Medication Instructions Recorded Confirmed Last Taken albuterol sulfate 90 mcg/actuation 1 puff inhalation DIRECTED PRN 05/19/23 05/19/23 Unknown aerosol inhaler Cough copper 380 square mm intrauterine 1 device intrauterine CONTINOUS 05/19/23 05/19/23 Unknown device (ParaGard T 380A) Active Medications Generic Name Dose Route Start Last Admin Trade Name Freq PRN Reason Stop Dose Admin Lactated Ringer's 1,000 mls @ 100 mls/hr 05/20/23 08:05 05/20/23 08:46 Lr IV 06/19/23 08:02 100 mls/hr .Q10H SHARMIN Administration Iron Sucrose 200 mg/ Sodium 110 mls @ 220 mls/hr 05/20/23 09:00 05/20/23 09:19 Chloride IV 05/24/23 08:59 Infused DAILY SHARMIN Infusion Past Anesthesia History No Hx of Anesthesia Complications and No Family Hx of Anesthesia Complications History of PONV No Hx of PONV and No Hx of Motion Sickness NPO Date Last Intake of Fluids: 05/19/23 Time Last Intake of Fluids: 10:30 Date Last Intake of Solids: 05/19/23 Time Last Intake of Solids: 10:30 Home Medications Home Medications Medication Instructions Recorded Confirmed Last Taken albuterol sulfate 90 mcg/actuation 1 puff inhalation DIRECTED PRN 05/19/23 05/19/23 Unknown aerosol inhaler Cough copper 380 square mm intrauterine 1 device intrauterine CONTINOUS 05/19/23 05/19/23 Unknown device (ParaGard T 380A) Active Medications Generic Name Dose Route Start Last Admin Trade Name Freq PRN Reason Stop Dose Admin Lactated Ringer's 1,000 mls @ 100 mls/hr 05/20/23 08:05 05/20/23 08:46 Lr IV 06/19/23 08:02 100 mls/hr .Q10H SHARMIN Administration Iron Sucrose 200 mg/ Sodium 110 mls @ 220 mls/hr 05/20/23 09:00 05/20/23 09:19 Chloride IV 05/24/23 08:59 Infused DAILY SHARMIN Infusion Exercise / Class Metabolic Activity Metabolic Activity: II 4-5 Yardwork/Stairs/Walk up hill Physical Exam Constitutional: no acute distress Mouth: no dentition abnormality Thyromental Distance: > or= 3.5 Finger Breadths Mallampati Class: III Neck: + visual inspection normal Respiratory: + respiratory effort normal and + clear to auscultation bilaterally; no respiratory distress Cardiovascular: + regular rate and + regular rhythm; no murmur Musculoskeletal: no limited cervical ROM Psychiatric: + alert and + oriented x 3 ASA ASA2 Proposed Anesthesia Proposed Anesthesia: MAC Risk / Benefits Reviewed With: PT / POA / Parent / Guardian, Accepts Plan and Informed Consent Obtained
--- NOTE | 2023-05-20 12:12 | GI REPORT ---
Patient Name: Mark Ayala Procedure Date: 05/20/2023 11:20 AM Date of : 1980 Admit Type: Inpatient Age: 43 Gender: Female Attending MD: Simon Upton DO, Procedure: Upper GI endoscopy Providers: Simon Upton DO [facility] Indications: Acute post hemorrhagic anemia Medicines: Monitored Anesthesia Care Complications: No immediate complications. Estimated Blood Loss: Estimated blood loss: none. Procedure: Pre-Anesthesia Assessment: - Prior to the procedure, a History and Physical was performed, and patient medications and allergies were reviewed. The patient's tolerance of previous anesthesia was also reviewed. The risks and benefits of the procedure and the sedation options and risks were discussed with the patient. All questions were answered, and informed consent was obtained. Prior Anticoagulants: The patient has taken no anticoagulant or antiplatelet agents. ASA Grade Assessment: II - A patient with mild systemic disease. After reviewing the risks and benefits, the patient was deemed in satisfactory condition to undergo the procedure. After obtaining informed consent, the endoscope was passed under direct vision. Throughout the procedure, the patient's blood pressure, pulse, and oxygen saturations were monitored continuously. The Scope was introduced through the mouth, and advanced to the second part of duodenum. The upper GI endoscopy was accomplished without difficulty. The patient tolerated the procedure well. Findings: The esophagus was normal. Localized mild inflammation characterized by erythema was found in the gastric antrum. Biopsies were taken with a cold forceps for histology. The examined duodenum was normal. Impression: - Normal esophagus. - Gastritis. Biopsied. - Normal examined duodenum. Recommendation: - [facility]. - Clear liquid diet today. - Perform a colonoscopy tomorrow. - Await pathology results. Simon Upton DO 05/20/2023 12:11:46 PM This report has been signed electronically. Note Initiated On: 05/20/2023 11:20 AM Number of Addenda: 0 I attest to the content of the Intraoperative Record and orders documented therein, exceptions below {[id number]}
[2023-05-20] MEDS: LIDOCAINE 2% 2 ML VIAL/AMP(20MG/ML) INFIL ONE (13:45)
[2023-05-20] MEDS: PROPOFOL IV EMULSION 10 MG/ML 20 ML VIAL IV ONE (13:45)
--- NOTE | 2023-05-20 14:21 | Hospitalist Progress Note ---
Date of Service May 20, 2023 Assessment & Plan (1) Severe anemia: Plan: Hgb 3.8 on admission; however mentating normally with some exertional fatigue but with no hypotension and minimal tachycardia suggestive of chronic decline History of hemorrhoids, and persistent/continuous hematochezia -- Patient reports she had a local exam in [facility], however did not have a colonoscopy at that time. CTA without evidence of acute abnormality/bleeding High sensitive troponin is negative, no signs of end organ ischemia Transferrin saturation 2%, ferritin critically low at 2.1 consistent with iron deficiency anemia -- Patient is microcytic from both iron deficiency and thalassemia -- Vitamin B12 and folate both within normal limits 3 units of blood transfused -- Hgb holding stable at 9.1 Venofer 200 mg daily while inpatient, for total course of 1 g during this hospitalization Protonix 40 mg p.o. daily GI consulted -- EGD on 05/20/23: Normal esophagus. Gastritisbiopsied. Normal examined duodenum. -- Recommendations: Clear liquid diet today. Colonoscopy scheduled for 05/11/2023 (2) Bloody stools: Plan: See above (3) Bleeding hemorrhoid: Plan: See above (4) Thalassemia: Plan: Folic acid 1 mg p.o. QAM Plan DVT prophylaxis: SCDs CODE STATUS: Full code Diet: Clear liquids. N.p.o. after midnight due to scheduled colonoscopy on 05/21/2023 Admission and Anticipated Discharge Date Admission Date: May 19, 2023 Subjective Patient seen and evaluated at bedside. She reports she feels significantly better since receiving the blood transfusions. She denies any melena or bright red blood per rectum, however she has not had a bowel movement since admission. She denies lightheadedness, fatigue, weakness, shortness of breath, chest pain. She denies any abdominal pain or discomfort. I personally discussed her EGD results with her from earlier this afternoon. Discussed the plan for colonoscopy tomorrow with GI. Physical Exam Physical Exam: General: No acute distress, nondiaphoretic, well-developed, well-nourished. Skin: The skin was without pallor, rashes, erythema, edema, or bruising. Cardiac: Regular rate and rhythm without murmurs gallops or rubs. Pulm: Clear to auscultation bilaterally without wheezes, rales or rhonchi. No retractions or accessory muscle use. Abdominal: Positive bowel sounds x 4. Soft, nontender, without masses or organomegaly. No guarding or rebound tenderness. Neuro: A&O x3. No focal neurological deficits. Results & Data Results & Data Vital Signs (Past 12 Hours) Vital Signs Temp Pulse Pulse Resp BP BP Pulse Ox 05/20/23 12:38 72 16 109/67 99 05/20/23 12:23 75 16 105/65 98 05/20/23 12:07 74 16 106/60 97 05/20/23 11:07 37.2 C 72 16 114/75 99 05/20/23 09:07 71 05/20/23 07:24 36.8 C 73 16 116/69 98 05/20/23 04:20 36.8 C 72 15 114/72 99 05/20/23 03:45 36.9 C 73 14 100/73 97 05/20/23 02:45 36.8 C 76 16 115/71 98 05/20/23 02:15 37.0 C 75 17 113/71 98 O2 Del Method 05/20/23 12:38 Room Air 05/20/23 12:23 Room Air 05/20/23 12:07 Room Air 05/20/23 11:07 Room Air 05/20/23 09:07 05/20/23 07:24 Room Air 05/20/23 04:20 05/20/23 03:45 05/20/23 02:45 05/20/23 02:15 Laboratory Results Reviewed CBC Reviewed chemistries Reviewed EGD Diagnostic Findings EGD 05/20/2023: Impression: Normal esophagus. Gastritisbiopsied. Normal examined duodenum. PG Care Time/CCT Total # of Minutes Spent Total Time Spent with Patient: Total time spent is greater than 50% in coordination of care (as documented) at patient's floor/unit and/or counseling patient: Coding Level of Care Code 13190 SUB INP/OBS CARE 350MIN Diagnoses Severe anemia D64.9 Bloody stools K92.1 Bleeding hemorrhoid K64.9 Thalassemia D56.9
--- NOTE | 2023-05-20 15:12 | Anesthesiology Progress Note ---
Date of Service May 20, 2023 Anesthesia Post Procedure Vital Signs Vital Signs: Temp Pulse Pulse Resp BP BP Pulse Ox 05/20/23 12:38 72 16 109/67 99 05/20/23 12:23 75 16 105/65 98 05/20/23 12:07 74 16 106/60 97 05/20/23 11:07 37.2 C 72 16 114/75 99 05/20/23 09:07 71 05/20/23 07:24 36.8 C 73 16 116/69 98 05/20/23 04:20 36.8 C 72 15 114/72 99 05/20/23 03:45 36.9 C 73 14 100/73 97 05/20/23 02:45 36.8 C 76 16 115/71 98 05/20/23 02:15 37.0 C 75 17 113/71 98 05/20/23 02:00 36.8 C 72 15 118/72 98 05/20/23 01:45 37.0 C 74 17 116/68 98 05/19/23 23:05 36.9 C 83 14 120/67 99 05/19/23 22:50 79 05/19/23 20:04 36.9 C 81 18 110/64 99 05/19/23 19:54 05/19/23 19:29 36.9 C 83 17 117/69 100 05/19/23 19:06 37.0 C 79 18 126/68 100 05/19/23 18:36 36.9 C 79 16 137/76 100 05/19/23 18:21 37.0 C 79 17 131/73 100 05/19/23 17:59 37.0 C 81 18 128/71 100 05/19/23 17:26 85 05/19/23 17:13 05/19/23 16:45 36.8 C 83 16 128/71 100 05/19/23 15:45 92 H 18 117/83 100 05/19/23 15:31 36.9 C 97 H 20 127/78 100 05/19/23 15:15 99 H 20 119/92 100 O2 Del Method 05/20/23 12:38 Room Air 05/20/23 12:23 Room Air 05/20/23 12:07 Room Air 05/20/23 11:07 Room Air 05/20/23 09:07 05/20/23 07:24 Room Air 05/20/23 04:20 05/20/23 03:45 05/20/23 02:45 05/20/23 02:15 05/20/23 02:00 05/20/23 01:45 05/19/23 23:05 Room Air 05/19/23 22:50 05/19/23 20:04 05/19/23 19:54 Room Air 05/19/23 19:29 Room Air 05/19/23 19:06 05/19/23 18:36 05/19/23 18:21 05/19/23 17:59 05/19/23 17:26 05/19/23 17:13 Room Air 05/19/23 16:45 05/19/23 15:45 05/19/23 15:31 05/19/23 15:15 Transfer of Care Handoff Completed per policy Notes Mental Status: alert / awake / arousable and participated in evaluation Nausea / Vomiting: adequately controlled Pain: adequately controlled Airway Patency, RR, SpO2: stable & adequate BP & HR: stable & adequate Hydration State: stable & adequate Anesthetic Complications: no major complications apparent and Pt Satisfied with anesthetic care
[2023-05-20] MEDS: FOLIC ACID 1 MG TAB PO SCH (15:36)
[2023-05-20] MEDS: PANTOprazole 40 MG TAB PO SCH (15:36)
[2023-05-20] MEDS: LAVAGE SOLUTION 4000ML PO SCH (18:17)
[2023-05-21 06:21] LABS: BUN Creatinine Ratio 9.1 (10-20); Calcium 8.1 mg/dl (8.6-10.3); Est GFR (African American) 124.5 ml/min; Est GFR (Non-African American) 107.4 ml/min; Potassium 3.5 mmol/L (3.5-5.1)
[2023-05-21 06:45] LABS: Anisocytosis Present; Basophils # (auto) 0.01 K/uL (0.00-0.20); Basophils % (auto) 0.2 %; Eosinophils # (auto) 0.04 K/uL (0.00-0.50); Eosinophils % (auto) 0.8 %; Hematocrit (blood only) 25.9 % (37.0-47.0); Hypochromasia Present; Immature Granulocytes # (auto) 0.02 K/uL (0.01-0.20); Immature Granulocytes % (auto) 0.4 %; Lymphocytes # (auto) 1.75 K/uL (1.20-3.40); Lymphocytes % (auto) 35.1 %; Mean Corpuscular Hemoglobin 20.9 pg (25.0-34.0); Mean Corpuscular Hgb Conc 30.9 g/dL (32.0-36.0); Mean Corpuscular Volume 67.8 fL (80.0-100.0); Microcytosis Present; Monocytes # (auto) 0.44 K/uL (0.11-0.59); Monocytes % (auto) 8.8 %; Neutrophils # (auto) 2.73 K/uL (1.40-6.50); Neutrophils % (auto) 54.7 %; Nucleated RBC # (auto) 0.05 K/uL (0.00-0.12); Ovalocytes 1+; Platelet Count 248 K/uL (130-400); Polychromasia 1+; Red Blood Count 3.82 M/uL (4.20-5.40); Schistocytes 1+; White Blood Count 4.99 K/ul (4.8-10.8)
--- NOTE | 2023-05-21 07:44 | Anesthesiology Consultation ---
Date of Service May 21, 2023 Assessment & Plan Chart Review Chart Review: order entry clerk initiated History Surgery Operation Date: 05/20/23 17:00 Proposed Procedures p Esophagogastroduodenoscopy Dr Won David Case, DO Operation Date: 05/21/23 16:30 Proposed Procedures p Colonoscopy Dr. Won David Case, DO Height/Weight Height: 5 ft 3 in Weight: 61 kg Allergies Allergy/AdvReac Type Severity Reaction Status Date / Time No Known Allergies Allergy Verified 05/19/23 15:02 Medications Home Medications Medication Instructions Recorded Confirmed Last Taken albuterol sulfate 90 mcg/actuation 1 puff inhalation DIRECTED PRN 05/19/23 05/19/23 Unknown aerosol inhaler Cough copper 380 square mm intrauterine 1 device intrauterine CONTINOUS 05/19/23 05/19/23 Unknown device (ParaGard T 380A) Active Medications Generic Name Dose Route Start Last Admin Trade Name Freq PRN Reason Stop Dose Admin Folic Acid 1 mg 05/20/23 14:30 05/20/23 15:36 Folic Acid 1 Mg Tab PO 06/19/23 14:29 1 mg QAM SHARMIN Administration Lactated Ringer's 1,000 mls @ 100 mls/hr 05/20/23 08:05 05/21/23 06:35 Lr IV 06/19/23 08:02 100 mls/hr .Q10H SHARMIN Administration Iron Sucrose 200 mg/ Sodium 110 mls @ 220 mls/hr 05/20/23 09:00 05/20/23 09:19 Chloride IV 05/24/23 08:59 Infused DAILY SHARMIN Infusion Pantoprazole Sodium 40 mg 05/20/23 14:45 05/20/23 15:36 Pantoprazole 40 Mg Tab PO 06/19/23 14:44 40 mg DAILY SHARMIN Administration NPO Date Last Intake of Fluids: 05/19/23 Time Last Intake of Fluids: 10:30 Date Last Intake of Solids: 05/19/23 Time Last Intake of Solids: 10:30 Past Medical History Medical History Encounter for insertion of copper IUD Bleeding hemorrhoid Thalassemia Bloody stools Social History Smoking Status: Never smoker Hx Alcohol Use: Yes alcohol intake frequency: holidays/special occasions only Hx Substance Use: No Physical Exam Vital Signs Last Vital Signs Temp 98.1 F 05/21/23 03:46 Pulse 72 05/21/23 03:46 Resp 16 05/21/23 03:46 BP 106/61 05/21/23 03:46 Pulse Ox 97 05/21/23 03:46 O2 Del Method Room Air 05/21/23 03:46 Testing Laboratory Results 05/21/23 05:37 05/21/23 05:37 PT 10.9 Seconds (9.0-12.0) 05/19/23 12:24 INR 1.0 (0.9-1.1) 05/19/23 12:24 APTT 21 Seconds (21-31) 05/19/23 12:24 Blood Type O Positive 05/19/23 12:24 Antibody Screen NEGATIVE 05/19/23 12:24 Electrocardiogram Date: 05/19/23 Findings: + NSST changes and + ST @ (106 bpm)
--- NOTE | 2023-05-21 09:34 | History & Physical Bridge Note ---
Date of Service May 21, 2023 History & Physical Bridge Note I have examined the patient, reviewed the History & Physical and in the interval since the performance of the History & Physical I have noted the following changes of clinical significance: Hgb dropped to 8 from 9 yesterday but without any overt GIB sx. She completed bowel preparation and is passing clear liquid bowel movements. PE:A&Ox3. Lungs CTA bilaterally. RRR. no M/R/G. Abdomen soft, non-tender. Hyperactive bowel sounds. Extremities normal to inspection. A/P: Patient is a 43 y.o. female admitted with symptomatic, profound SHANITA with rectal bleeding. S/P EGD yesterday without an obvious source of bleeding. -NPO. -Proceed with colonoscopy by Dr. Upton today. -Further recommendations pending results of testing. Supervising Physician Co-Signing Physician Notes Agree with OLIVE Gil as above Abd: Soft, NT, ND, +BS Continue current therapy and supportive care Proceed with colonoscopy
--- NOTE | 2023-05-21 11:00 | GI REPORT ---
Patient Name: Mark Ayala Procedure Date: 05/21/2023 10:17 AM Date of : 1980 Admit Type: Inpatient Age: 43 Gender: Female Attending MD: Simon Upton DO, Procedure: Colonoscopy Providers: Simon Upton DO Referring MD: [facility] Indications: High risk colon cancer surveillance: Personal history of colonic polyps Medicines: Monitored Anesthesia Care Complications: No immediate complications. Estimated Blood Loss: Estimated blood loss: none. Procedure: Pre-Anesthesia Assessment: - Prior to the procedure, a History and Physical was performed, and patient medications and allergies were reviewed. The patient's tolerance of previous anesthesia was also reviewed. The risks and benefits of the procedure and the sedation options and risks were discussed with the patient. All questions were answered, and informed consent was obtained. Prior Anticoagulants: The patient has taken no anticoagulant or antiplatelet agents. ASA Grade Assessment: II - A patient with mild systemic disease. After reviewing the risks and benefits, the patient was deemed in satisfactory condition to undergo the procedure. After I obtained informed consent, the scope was passed under direct vision. Throughout the procedure, the patient's blood pressure, pulse, and oxygen saturations were monitored continuously. The Colonoscope was introduced through the anus and advanced to the terminal ileum. The colonoscopy was performed without difficulty. The patient tolerated the procedure well. The quality of the bowel preparation was good. The terminal ileum, ileocecal valve, appendiceal orifice, and rectum were photographed. Findings: The perianal and digital rectal examinations were normal. Internal hemorrhoids were found during retroflexion. The hemorrhoids were medium-sized. Impression: - Internal hemorrhoids. - No specimens collected. Recommendation: - [facility] patient [facility] care. - Resume regular diet. - Continue present medications. - Recommend capsule endoscopy to be scheduled with [facility] in [place] - Return to primary care physician as previously scheduled. Simon Upton DO 05/21/2023 10:59:56 AM This report has been signed electronically. Note Initiated On: 05/21/2023 10:17 AM Number of Addenda: 0 I attest to the content of the Intraoperative Record and orders documented therein, exceptions below {[id number]}
--- NOTE | 2023-05-21 11:12 | Anesthesiology Progress Note ---
Date of Service May 21, 2023 Anesthesia Post Procedure Vital Signs Vital Signs: Temp Pulse Pulse Resp BP Pulse Ox O2 Del Method 05/21/23 11:04 71 18 100/56 L 98 Room Air 05/21/23 10:03 98.6 F 75 18 122/68 98 Room Air 05/21/23 07:56 98.4 F 70 17 108/65 97 Room Air 05/21/23 03:46 98.1 F 72 16 106/61 97 Room Air 05/20/23 23:44 97.5 F L 68 16 120/83 100 Room Air 05/20/23 22:09 73 05/20/23 21:00 Room Air 05/20/23 19:38 97.7 F 75 16 122/83 100 Room Air 05/20/23 17:11 84 05/20/23 15:31 98.1 F 81 19 116/71 100 Room Air 05/20/23 12:38 72 16 109/67 99 Room Air 05/20/23 12:23 75 16 105/65 98 Room Air 05/20/23 12:07 74 16 106/60 97 Room Air Transfer of Care Handoff Completed per policy Notes Mental Status: alert / awake / arousable and participated in evaluation Patient Amnestic to Procedure: Yes Nausea / Vomiting: adequately controlled Pain: adequately controlled Airway Patency, RR, SpO2: stable & adequate BP & HR: stable & adequate Hydration State: stable & adequate Anesthetic Complications: no major complications apparent and Pt Satisfied with anesthetic care
[2023-05-21] MEDS: PROPOFOL IV EMULSION 10 MG/ML 20 ML VIAL IV ONE (11:41)
[2023-05-21] MEDS: fentaNYL citrate PF 100 MCG/2 ML VIAL ONE (11:41)
[2023-05-21] MEDS: MIDAZOLAM HCL 1 MG/ML 2ML VIAL ONE (11:44)
--- NOTE | 2023-05-21 14:34 | Hospitalist Progress Note ---
Date of Service May 21, 2023 Assessment & Plan (1) Severe anemia: Plan: Hgb 3.8 on admission; however mentating normally with some exertional fatigue but with no hypotension and minimal tachycardia suggestive of chronic decline History of hemorrhoids, and persistent/continuous hematochezia -- Patient reports she had a local exam in [place], however did not have a colonoscopy at that time. CTA without evidence of acute abnormality/bleeding High sensitive troponin is negative, no signs of end organ ischemia Transferrin saturation 2%, ferritin critically low at 2.1 consistent with iron deficiency anemia -- Patient is microcytic from both iron deficiency and thalassemia -- Vitamin B12 and folate both within normal limits 3 units of blood transfused -- Hgb holding stable at 8.0 Venofer 200 mg daily while inpatient, for total course of 1 g during this hospitalization Protonix 40 mg p.o. daily GI consulted -- EGD on 05/20/23: Normal esophagus. Gastritisbiopsied. Normal examined duodenum. -- Colonoscopy on 05/21/2023: Medium sized internal hemorrhoids. No specimens collected. -- Recommendations: Capsule endoscopy with [facility] in [place]. Continue present medications. Resume regular diet. Will recheck labs in a.m., and if hemoglobin holding stable, patient can be discharged tomorrow, 05/22/2023 with plan for capsule endoscopy. (2) Bloody stools: Plan: See above (3) Bleeding hemorrhoid: Plan: See above (4) Thalassemia: Plan: Folic acid 1 mg p.o. QAM Plan DVT prophylaxis: SCDs CODE STATUS: Full code Diet: Clear liquids. N.p.o. after midnight due to scheduled colonoscopy on 05/21/2023 Admission and Anticipated Discharge Date Admission Date: May 19, 2023 Subjective Patient seen and evaluated at bedside. She has no complaints at this time. I personally discussed the results of her colonoscopy with her and answered her questions about proceeding forward. She denies lightheadedness, dizziness, shortness of breath, chest pain, abdominal pain, urinary symptoms. Discussed plan to review lab work in the morning, and if hemoglobin remains stable, can be discharged tomorrow with plan for capsule endoscopy in the outpatient setting. Physical Exam Physical Exam: General: No acute distress, nondiaphoretic, well-developed, well-nourished. Skin: The skin was without pallor, rashes, erythema, edema, or bruising. Cardiac: Regular rate and rhythm without murmurs gallops or rubs. Pulm: Clear to auscultation bilaterally without wheezes, rales or rhonchi. No retractions or accessory muscle use. Abdominal: Positive bowel sounds x 4. Soft, nontender, without masses or organomegaly. No guarding or rebound tenderness. Neuro: A&O x3. No focal neurological deficits. Results & Data Results & Data Vital Signs (Past 12 Hours) Vital Signs Temp Pulse Pulse Resp BP Pulse Ox O2 Del Method 05/21/23 11:59 36.4 C L 75 18 98/60 L 100 Room Air 05/21/23 11:26 68 18 105/67 99 Room Air 05/21/23 11:13 67 18 108/66 99 Room Air 05/21/23 11:04 71 18 100/56 L 98 Room Air 05/21/23 10:03 37 C 75 18 122/68 98 Room Air 05/21/23 08:00 68 05/21/23 07:56 36.9 C 70 17 108/65 97 Room Air 05/21/23 03:46 36.7 C 72 16 106/61 97 Room Air Laboratory Results Reviewed CBC Reviewed chemistry Reviewed colonoscopy results Diagnostic Findings Colonoscopy 05/21/2023: Findings: Perianal and digital rectal exams were normal. Internal hemorrhoidsmedium sized, no specimens collected. PG Care Time/CCT Total # of Minutes Spent Total Time Spent with Patient: Total time spent is greater than 50% in coordination of care (as documented) at patient's floor/unit and/or counseling patient: Coding Level of Care Code 11745 SUB INP/OBS CARE 2/35MIN Diagnoses Severe anemia D64.9 Bloody stools K92.1 Bleeding hemorrhoid K64.9 Thalassemia D56.9
[2023-05-22 06:47] LABS: BUN Creatinine Ratio 14.5 (10-20); Calcium 8.6 mg/dl (8.6-10.3); Creatinine Clr Calc Pharmacy 78.1 ml/min; Est GFR (African American) 110.6 ml/min; Est GFR (Non-African American) 95.4 ml/min; Potassium 3.8 mmol/L (3.5-5.1)
[2023-05-22 06:55] LABS: Anisocytosis Present; Basophils # (auto) 0.02 K/uL (0.00-0.20); Basophils % (auto) 0.3 %; Eosinophils # (auto) 0.11 K/uL (0.00-0.50); Eosinophils % (auto) 1.6 %; Hematocrit (blood only) 27.4 % (37.0-47.0); Hemoglobin 8.3 g/dl (12.0-16.0); Hypochromasia Present; Immature Granulocytes # (auto) 0.03 K/uL (0.01-0.20); Immature Granulocytes % (auto) 0.4 %; Lymphocytes # (auto) 2.12 K/uL (1.20-3.40); Lymphocytes % (auto) 30.6 %; Mean Corpuscular Hemoglobin 20.8 pg (25.0-34.0); Mean Corpuscular Hgb Conc 30.3 g/dL (32.0-36.0); Mean Corpuscular Volume 68.7 fL (80.0-100.0); Microcytosis Present; Monocytes # (auto) 0.43 K/uL (0.11-0.59); Monocytes % (auto) 6.2 %; Neutrophils # (auto) 4.21 K/uL (1.40-6.50); Neutrophils % (auto) 60.9 %; Nucleated RBC # (auto) 0.12 K/uL (0.00-0.12); Nucleated RBC % (auto) 1.7 %; Ovalocytes 1+; Platelet Count 260 K/uL (130-400); Polychromasia 1+; Red Blood Count 3.99 M/uL (4.20-5.40); Schistocytes 1+; Tear Drop Cells 1+; White Blood Count 6.92 K/ul (4.8-10.8)
--- NOTE | 2023-05-22 14:35 | Discharge Summary ---
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 Patient did have an evaluation in [facility] for this and was diagnosed with hemorrhoids but did not require surgery at time of evaluation. Patient has continued with bright red blood in the toilet over the last month. She has recently had progressive dyspnea on exertion, weakness, global fatigue without focal weakness or sensory change. No personal or family history of colon cancer/IBD. She has a history of thalassemia and macrocytosis. Case was discu ssed in the ER, patient's transferrin saturation is 2%, ferritin 2.1% consistent with severe iron deficiency anemia. She has a microcytosis multifactorial from iron deficiency and thalassemia with a presenting hemoglobin of 3.8. Initially was reflexed to a manual platelet count from outpatient [facility] blood work, platelets are normal on admitting CBC. Patient seen at the bedside. She reports that she has had a long history of intermittent bright red bleeding with bowel movements in the toilet, however this has been more persistent and relatively constant over the last month. Approximately 2 to 3 weeks ago she began to get short of breath with exertion, lightheaded, and progressively weaker/with lower exercise tolerance. She has not had chest pain or syncope at any point. She eventually felt so tired that she saw [facility], was found to be anemic and was subsequently referred to the ER for further care. 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 She reports that she had a local exam which diagnosed hemorrhoids when she was in [facility]; however has not been sedated for any procedures and does not think she had a actual colonoscopy at any point. No history of colorectal cancer. She does have a copper IUD, has regular menses every 28 days which last about 6 days but are without heavy bleeding or clots. Denies other bleeding. No history of blood clots. She is not on antiplatelet agents or blood thinners. She did recently have the flu last month from which she has recovered, did use some intermittent NyQuil at that time. Otherwise has not used any ibuprofen or aspirin containing products. She has no epigastric pain, nausea, vomiting, or melena. Medical History: Reviewed Medications: Reviewed Surgical History: Reviewed Family history: Reviewed Allergies: Reviewed Social History: Reviewed Code Status:Full Admission Exam Per Admitting Provider General: A&Ox3. NAD. Cooperative. +pallor HEENT: Atraumatic, normocephalic. Pulm: CTAB A&P. -wheezes, -rales, -rhonchi. Symmetrical chest rise. No increased work of breathing. No respiratory distress. Cardiac: RRR, -mrg. Radial pulses intact and symmetrical. Abdominal: Nontender, nondistended, soft. BS present. Ext: warm, dry. Distal strength/sensation grossly intact. Principal Diagnosis Severe anemia GI bleed Thalassemia Discharge Exam General: No acute distress, nondiaphoretic, well-developed, well-nourished. Skin: The skin was without pallor, rashes, erythema, edema, or bruising. Cardiac: Regular rate and rhythm without murmurs gallops or rubs. Pulm: Clear to auscultation bilaterally without wheezes, rales or rhonchi. No retractions or accessory muscle use. Abdominal: Positive bowel sounds x 4. Soft, nontender, without masses or organomegaly. No guarding or rebound tenderness. Neuro: A&O x3. No focal neurological deficits. Discharge Data Allergies Allergy/AdvReac Type Severity Reaction Status Date / Time No Known Allergies Allergy Verified 05/21/23 10:02 Consultations 05/19/23 13:44 ED Decision to Admit Stat 05/19/23 16:50 Consult Gastroenterology Routine Procedures Performed Operation Date: 05/20/23 11:20 EGD - Simon David Case, DO Impression: Normal esophagus. Gastritisbiopsied. Normal examined duodenum. Await pathology results. Operation Date: 05/21/23 10:30 Colonoscopy - Simon David Case, DO Impression: Medium-sized internal hemorrhoids. No specimens collected. Recommendation: Resume regular diet. Continue present medications. Recommend capsule endoscopy to be scheduled with [facility] in [place]. Ordered Studies 05/19/23 13:26 CT angio abdomen pelvis w con Stat Impression: No acute process within the abdomen or pelvis on CTA. Normal caliber abdominal aorta. 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 Patent SMA and SÁNCHEZ. Normal appendix. No bowel obstruction. No bowel wall thickening. Hospital Course (1) Severe anemia: Hgb 3.8 on admission; however mentating normally with some exertional fatigue but with no hypotension and minimal tachycardia suggestive of chronic decline History of hemorrhoids, and persistent/continuous hematochezia -- Patient reports she had a local exam in [place], however did not have a colonoscopy at that time. CTA without evidence of acute abnormality/bleeding High sensitive troponin is negative, no signs of end organ ischemia Transferrin saturation 2%, ferritin critically low at 2.1 consistent with iron deficiency anemia -- Patient is microcytic from both iron deficiency and thalassemia -- Vitamin B12 and folate both within normal limits 3 units of blood transfused -- Hgb holding stable at 8.3 on day of discharge Venofer 200 mg daily while inpatient, Protonix 40 mg p.o. daily GI consulted -- EGD on 05/20/23: Normal esophagus. Gastritisbiopsied. Normal examined duodenum. -- Colonoscopy on 05/21/2023: Medium sized internal hemorrhoids. No specimens collected. -- Recommendations: Capsule endoscopy with [facility] in [place]. Continue present medications. Resume regular diet. Upon discharge: Continue folic acid and Protonix as prescribed. Take [id number] ferrous sulfate 325 mg daily. Plan for capsule endoscopy with GI. (2) Bloody stools: See above (3) Bleeding hemorrhoid: See above (4) Thalassemia: Folic acid 1 mg p.o. QA Plan CODE STATUS: Full code Total Time Total Time Spent Total Time Spent (In Minutes): Greater than 30 minutes spent completing this discharge process including direct patient care, medication reconciliation, documentation, review of labs and images, and coordination of care. Discharge Plan Discharge Items Patient Disposition: Home - Self-Care Reason For Visit: GIB, HGB 3.8 Discharge Diagnosis: Severe anemia GI bleed Activity: Resume your previous activity Non-emergency contact: Primary Care Provider and Lip Cutter Call non-emergency contact if: your symptoms worsen Follow-up/Referrals: [facility] [Primary Care Provider] - Diet: Regular Addtl Attending Provider Instructions: You were admitted to the hospital due to severe anemia, with a hemoglobin of 3.8 on admission. This anemia is most likely multifactorial between your thalassemia and persistent GI bleeding. Anemia is a condition that occurs in your body does not have enough healthy red blood cells. A protein called hemoglobin allows your red blood cells to absorb and release oxygen. Without en ough red blood cells or hemoglobin, your body does not get enough oxygen, and symptoms of anemia may then occur. The symptoms include fatigue, weakness, pale skin, shortness of breath, dizziness, fainting, rapid heartbeat, headache, cold hands or feet, or chest pain. You had 3 units of blood transfused, and your hemoglobin has remained stable around 8. You had 2 different procedures with the gastroenterology (GI) team: * An EGD (Esophagogastroduodenoscopy) which showed a normal esophagus, gastritis (inflammation of the stomach), and normal duodenum. * You also had a colonoscopy, which revealed medium sized internal hemorrhoids, but no sites of active bleeding. Upon discharge from the hospital, you will be prescribed a few medications: * Folic acidthis is also called folate. -- It is one of the B vitamins. It is needed to prevent a shortage of red blood cells. * Protonixthis is a PPI (proton pump inhibitor). -- This medication works by reducing the production of acid in the stomach. It works best when taken 30 minutes before the first meal of the day. * Ferrous sulfatethis is an iron supplementation. -- Iron helps the blood cells carry oxygen. When you do not get enough iron, you may feel tired and lack of energy. -- Over time without enough iron, your body makes fewer red blood cells. This can contribute to iron deficiency anemia. -- This is an ubrq-jro-dhgecwc (OTC) medicine that you can buy at the pharmacy. -- Take 325 mg of ferrous sulfate once daily. -- This may cause constipation. To prevent this, drink plenty of water, eat high-fiber foods, and exercise often. Additionally, it may also cause dark stools. -- You can take this with vitamin C, or a beverage high in vitamin C such as orange juice. This will help your body absorb the iron better. -- Do not take this with milk. The calcium and milk limits iron absorption. The GI team is recommending a capsule endoscopy in the outpatient setting upon discharge. * A capsule endoscopy is a test done to take pictures of the digestive tract. The capsule is swallowed like a pill, and has a tiny camera in it. As it moves through the digestive tract, the camera sends pictures to a recorder. * After few days, the capsule passes out of the body through the rectum during a bowel movement. A can be flushed on the toilet with your stool. * This is used to check for sites of bleeding in the small intestine that are hard to see with EGD or colonoscopy. * The GI office will call you with your scheduled appointment date and time. Please return to the hospital if: You pass out (lose consciousness), your stools are very bloody, you vomit blood (bright red or what looks like coffee grounds), become lightheaded/dizzy, experienced sudden/severe belly pain, or have shortness of breath or chest pain. Pending Studies at Discharge: No Stand-Alone Forms: My [facility] [place], Smoking Cessation Medications and DC Order Prescriptions: New pantoprazole 40 mg Tablet,Delayed Release (Dr/Ec) 40 mg PO DAILY Qty: 30 0RF folic acid 1 mg Tablet 1 mg PO QAM Qty: 30 0RF Continued albuterol sulfate 90 mcg/actuation HFA aerosol inhaler 1 puff inhalation DIRECTED PRN (Reason: Cough) ParaGard T 380A 380 square mm intrauterine device 1 device intrauterine CONTINOUS Discharge Orders: Discharge Order (Routine); Ordered 05/22/23 Ordered By: Isabel Elizabeth/Other Patient Handouts: Capsule Endoscopy, Anemia, Rectal Bleeding Tx, Iron Supplements, ED Lower GI Bleeding (Stable) Admission Data Admit Date/Time: 05/19/23 15:12 Attending Provider: Bayron Frost Admit Provider: Dean Leyva Primary Care Provider: [facility] Other Providers: Dean Leyva; Simon Upton Other Interventions: *Nursing Shift Assessment Last Done: 05/22/23 08:16 Discharge Summary Assessment (RN) Last Done: 05/22/23 10:05 Coding Level of Care Code 79732 INP/OBS DISCH >30 MIN Diagnoses Severe anemia D64.9 Bloody stools K92.1 Bleeding hemorrhoid K64.9 Thalassemia D56.9
== END 2023-05-22 10:55 | disposition home or self-care (01) | DRG 378 ==
LOC: ED 11:50 → 2E 15:12 → SUATTDRO 15:12 → 2E 16:03